=== PATIENT | female | born 1995 | race Caucasian/White ===

== ENCOUNTER 2017-09-16 11:45 | Inpatient (IN) ==
[2017-09-16] MEDS ORDERED: SODIUM CHLORIDE 0.9% 1,000 ML IV STA (12:12)
[2017-09-16 13:03] LABS: Basophils % 0.5 % (0.0-0.8); Eosinophils % 0.2 % (0.00-10.9); Hemoglobin 12.5 GM/DL (12.0-16.0); Immature Granulocytes % 0.6 %; Immature Granulocytes Absolute 0.05 #; Lymphocytes # 0.9 10*3/uL (1.4-4.0); Lymphocytes % 11.2 % (21.3-54.2); Mean Corpuscular HGB Conc 33.8 GM/DL (32-36); Mean Corpuscular Hemoglobin 31 PG (27-34); Mean Corpuscular Volume 90.5 FL (87-102); Mean Platelet Volume 9.8 FL (9.6-12.0); Monocytes # 0.5 10*3/uL (0.11-0.8); Monocytes % 6.5 % (1.7-12.7); Neutrophils # 6.6 10*3/uL (1.4-7.4); Platelet Count 226 T/CUMM (130-400); Red Blood Count 4.09 MC/CUMM (3.8-5.5); Red Cell Distribution Width 12.3 % (9.3-17.3); White Blood Count 8.2 T/CUMM (4-12)
[2017-09-16 13:12] LABS: Alanine Aminotransferase 38 U/L (13-56); Albumin 3.8 G/DL (3.4-5.0); Alkaline Phosphatase 64 U/L (45-117); Aspartate Amino Transferase 29 U/L (0-37); Bilirubin,Total < 0.39 MG/DL (0.2-1.0); Blood Urea Nitrogen 7 MG/DL (7-18); Calcium 9.4 MG/DL (8.5-10.1)
[2017-09-16 13:13] LABS: Glucose 79 MG/DL (74-106); Potassium 3.5 MMOL/L (3.5-5.1); Sodium 136 MMOL/L (136-145)
[2017-09-16 13:30] LABS: Apearance,Urine CLEAR (Clear); Bilirubin,Urine Negative (Negative); Blood, Urine Large mg/dL (Negative); Glucose,Urine (UA) Negative (Negative); Ketones,Urine Negative (Negative); Mucus,Urine Occasional /LPF (Occasional); Nitrite,Urine Negative (Negative); Protein,Urine Negative; RBC,Urine 70 /HPF (0-4); Squamous Epithelial Cell,Urine Occasional /HPF (0-10); Urine Color Straw (Yellow); Urine Specific Gravity 1.005 (1.001-1.035); Urine Urobilinogen < 2.0 EU/DL (0.2-1.0); WBC,Urine <1 /HPF (0-6)
[2017-09-16] MEDS ORDERED: HYDROmorphone 2 MG TABLET PO PRN (16:06)
[2017-09-16] MEDS ORDERED: PROMETHAZINE 25 MG/1 ML VIAL IM PRN (16:06)
[2017-09-16] MEDS ORDERED: MAGNESIUM HYDROXIDE SUSP 30 ML UDCUP PO PRN (16:06)
[2017-09-16] MEDS ORDERED: BISACODYL 10 MG SUPP RECTAL PRN (16:06)
[2017-09-16] MEDS ORDERED: ONDANSETRON 4 MG/2 ML VIAL IV PRN (16:06)
[2017-09-16] MEDS: AMPICILLIN INJ 2,000 MG in SODIUM CHLORIDE 0.9% 100 ML IV SCH ×2 (17:12→23:12)
[2017-09-16] MEDS: IBUPROFEN 800 MG TABLET PO PRN (18:02)
[2017-09-16] MEDS: GENTAMICIN INJ 100 MG in PREMIX 1 EACH IV SCH (18:07)
[2017-09-16] MEDS: LACTATED RINGERS 1,000 ML IV SCH ×2 (19:00→23:16)
[2017-09-16] MEDS: DOCUSATE SODIUM 100 MG CAPSULE PO SCH (21:30)
[2017-09-17] MEDS: GENTAMICIN INJ 100 MG in PREMIX 1 EACH IV SCH ×3 (00:28→16:53)
[2017-09-17] MEDS: IBUPROFEN 800 MG TABLET PO PRN (04:15)
[2017-09-17] MEDS: AMPICILLIN INJ 2,000 MG in SODIUM CHLORIDE 0.9% 100 ML IV SCH ×4 (04:53→23:29)
[2017-09-17] MEDS: DOCUSATE SODIUM 100 MG CAPSULE PO SCH ×3 (08:34→20:51)
[2017-09-17] MEDS: LACTATED RINGERS 1,000 ML IV SCH ×2 (08:37→20:50)
[2017-09-17] MEDS: metroNIDAZOLE INJ 500 MG in PREMIX 1 EACH IV SCH ×2 (13:33→18:10)
[2017-09-18] MEDS: GENTAMICIN INJ 100 MG in PREMIX 1 EACH IV SCH ×3 (00:33→20:12)
[2017-09-18] MEDS: metroNIDAZOLE INJ 500 MG in PREMIX 1 EACH IV SCH ×4 (01:06→22:43)
[2017-09-18] MEDS: AMPICILLIN INJ 2,000 MG in SODIUM CHLORIDE 0.9% 100 ML IV SCH ×3 (04:56→18:32)
[2017-09-18] MEDS ORDERED: METHYLERGONOVINE 0.2 MG/1 ML AMP IM PRN (08:42)
[2017-09-18] MEDS: DOCUSATE SODIUM 100 MG CAPSULE PO SCH ×2 (10:54→22:46)
[2017-09-18] MEDS: METHYLERGONOVINE 0.2 MG TABLET PO SCH ×2 (15:34→22:43)
[2017-09-18] MEDS: LACTATED RINGERS 1,000 ML IV SCH (18:34)
[2017-09-19] MEDS: AMPICILLIN INJ 2,000 MG in SODIUM CHLORIDE 0.9% 100 ML IV SCH ×2 (02:18→05:22)
[2017-09-19] MEDS: GENTAMICIN INJ 100 MG in PREMIX 1 EACH IV SCH (04:03)
[2017-09-19] MEDS: metroNIDAZOLE INJ 500 MG in PREMIX 1 EACH IV SCH (06:40)
[2017-09-19] MEDS: LACTATED RINGERS 1,000 ML IV SCH ×2 (06:41→06:45)
[2017-09-19] MEDS: METHYLERGONOVINE 0.2 MG TABLET PO SCH (06:41)
[2017-09-19 07:53] VITALS: BP 89/52
[2017-09-19] MEDS: DOCUSATE SODIUM 100 MG CAPSULE PO SCH (09:39)
== END 2017-09-19 10:55 | disposition home or self-care (01) | DRG 531 ==
LOC: N.ED 11:45 → N.EDINP 11:45 → N.2E 15:53
PROVIDERS: ADMIT Specialist; ATTEND Specialist